=== PATIENT | male | born 1960 | race Caucasian/White ===

== ENCOUNTER 2020-01-23 07:55 | Inpatient (IN) | payer OTHER ==
[2020-01-23] MEDS ORDERED: Nozin Nasal Sanitizer NASBOTH SCH (09:00)
[2020-01-23] MEDS ORDERED: ceFAZolin 2 GM in Premix Bag 1 BAG IV ONE (09:00)
[2020-01-23] MEDS: Lactated Ringers 1,000 ML IV SCH ×2 (09:40→20:42)
[2020-01-23] MEDS ORDERED: fentaNYL 100 MCG/2 ML SDV ONE (10:03)
[2020-01-23] MEDS ORDERED: Propofol 200 MG/20 ML SDV ONE (10:03)
[2020-01-23] MEDS ORDERED: Midazolam 1 MG/ML 2 ML SDV ONE ×2 (10:03→10:27)
[2020-01-23] MEDS ORDERED: Lactated Ringers 1,000 ML ONE (11:20)
[2020-01-23] MEDS ORDERED: Magnesium Hydroxide 400 MG/5 ML Susp 30 ML Cup PO PRN (11:32)
[2020-01-23] MEDS ORDERED: Ondansetron 4 MG/2 ML SDV IVPUSH PRN (11:32)
[2020-01-23] MEDS: Acetaminophen/oxyCODONE 325-5 MG Tab PO PRN ×2 (13:35→18:17)
[2020-01-23] MEDS: Ketorolac 30 MG/ML SDV IVPUSH SCH ×2 (15:09→19:52)
[2020-01-23] MEDS: Morphine 2 MG/ML SYRINGE IV PRN ×4 (17:03→23:49)
[2020-01-23] MEDS: ceFAZolin 1 GM in Premix Bag 1 BAG IV SCH (18:27)
[2020-01-23] MEDS: Nozin Nasal Sanitizer NASBOTH SCH (20:02)
[2020-01-23] MEDS: Acetaminophen/HYDROcodone 325-5 MG Tab PO PRN (23:52)
[2020-01-24] MEDS: Morphine 2 MG/ML SYRINGE IV PRN ×3 (01:09→17:03)
[2020-01-24] MEDS: Ketorolac 30 MG/ML SDV IVPUSH SCH ×4 (01:12→20:00)
[2020-01-24] MEDS: ceFAZolin 1 GM in Premix Bag 1 BAG IV SCH (01:15)
[2020-01-24] MEDS: Diazepam 2 MG Tab PO PRN ×3 (02:00→17:37)
[2020-01-24] MEDS: Acetaminophen/HYDROcodone 325-5 MG Tab PO PRN ×4 (05:39→21:49)
[2020-01-24] MEDS: Docusate Sodium 100 MG Cap PO SCH (09:36)
[2020-01-24] MEDS: Nozin Nasal Sanitizer NASBOTH SCH ×2 (09:36→20:00)
[2020-01-24] MEDS: Pantoprazole 40 MG Tab.CR PO SCH (14:03)
[2020-01-25] MEDS: Diazepam 2 MG Tab PO PRN ×2 (02:18→09:19)
[2020-01-25] MEDS: Acetaminophen/HYDROcodone 325-5 MG Tab PO PRN ×3 (02:19→13:42)
[2020-01-25] MEDS: Ketorolac 30 MG/ML SDV IVPUSH SCH ×3 (02:20→13:43)
[2020-01-25] MEDS: Pantoprazole 40 MG Tab.CR PO SCH (07:50)
[2020-01-25] MEDS: Docusate Sodium 100 MG Cap PO SCH (08:47)
[2020-01-25] MEDS: Nozin Nasal Sanitizer NASBOTH SCH (08:47)
[2020-01-25] MEDS: Morphine 2 MG/ML SYRINGE IV PRN (10:45)
--- NOTE | 2020-01-25 13:28 | PCM.SURGPN ---
- General Info Date of Service: 01/24/20 Date of Surgery/Procedure: 01/23/20 POD#: 1 Functional Status: Reports: Tolerating Diet, Urinating - Review of Systems General: Reports: No Symptoms HEENT: Reports: No Symptoms Pulmonary: Reports: No Symptoms Cardiovascular: Reports: No Symptoms Gastrointestinal: Reports: No Symptoms Genitourinary: Reports: No Symptoms Musculoskeletal: Reports: Leg Pain Skin: Reports: No Symptoms Neurological: Reports: No Symptoms Psychiatric: Reports: No Symptoms - Patient Data Vitals - Most Recent: Last Vital Signs Temp 36.6 C 01/25/20 11:00 Pulse 86 01/25/20 11:00 Resp 16 01/25/20 11:00 BP 122/74 01/25/20 11:00 Pulse Ox 97 01/25/20 11:00 Weight - Most Recent: 90.265 kg I&O - Last 24 Hours: Intake & Output 01/24/20 01/25/20 01/25/20 22:59 06:59 14:59 Intake Total 800 2000 240 Output Total 700 400 500 Balance 100 1600 -260 Med Orders - Current: Current Medications Hydrocodone Bitart/Acetaminophen ([place] 325-5 Mg) 2 tab PO Q4H PRN PRN Reason: Pain (mild 1-3) Last Admin: 01/25/20 08:09 Dose: 2 tab Documented by: Bandage/Support Products ( Nasal Software Verification Engineer) 1 applic NASBOTH BID [facility] Stop: 01/30/20 21:01 Last Admin: 01/25/20 08:47 Dose: 1 applic Documented by: Diazepam (Valium) 2 mg PO Q8H PRN PRN Reason: Pain Last Admin: 01/25/20 09:19 Dose: 2 mg Documented by: Docusate Sodium (Colace) 100 mg PO DAILY [facility] Last Admin: 01/25/20 08:47 Dose: 100 mg Documented by: Lactated Ringer's (Ringers, Lactated) 1,000 mls @ 75 mls/hr IV ASDIRECTED [facility] Last Admin: 01/23/20 20:42 Dose: 75 mls/hr Documented by: Ketorolac Tromethamine (Toradol) 30 mg IVPUSH Q6H [facility] Stop: 01/25/20 14:01 Last Admin: 01/25/20 07:59 Dose: 30 mg Documented by: Magnesium Hydroxide (Milk Of Magnesia) 30 ml PO Q6H PRN PRN Reason: Stool Softener Morphine Sulfate (Morphine) 1 mg IV Q1H PRN PRN Reason: Breakthrough Pain Last Admin: 01/25/20 10:45 Dose: 1 mg Documented by: Ondansetron HCl (Zofran) 4 mg IVPUSH Q6H PRN PRN Reason: Nausea/Vomiting Oxycodone/Acetaminophen (Percocet 325-5 Mg) 1 - 2 tab PO Q6H PRN PRN Reason: Pain (moderate 4-6) Last Admin: 01/23/20 18:17 Dose: 2 tab Documented by: Pantoprazole Sodium (Protonix) 40 mg PO DAILY@0730 [facility] Last Admin: 01/25/20 07:50 Dose: 40 mg Documented by: Discontinued Medications Bandage/Support Products ( Nasal Software Verification Engineer) 1 applic NASBOTH BID [facility] Last Admin: 01/23/20 09:01 Dose: 1 applic Documented by: Fentanyl (Sublimaze) Confirm Administered Dose 100 mcg .ROUTE .STK-MED ONE Stop: 01/23/20 10:04 Cefazolin Sodium/Dextrose 2 gm (/ Premix) 50 mls @ 100 mls/hr IV ONETIME ONE Stop: 01/23/20 09:29 Last Admin: 01/23/20 10:07 Dose: 100 mls/hr Documented by: Lactated Ringer's (Ringers, Lactated) Confirm Administered Dose 1,000 mls @ as directed .ROUTE .STK-MED ONE Stop: 01/23/20 11:21 Cefazolin Sodium/Dextrose 1 gm (/ Premix) 50 mls @ 200 mls/hr IV Q8H [facility] Stop: 01/24/20 02:14 Last Admin: 01/24/20 01:15 Dose: 200 mls/hr Documented by: Midazolam HCl (Versed 1 Mg/Ml) Confirm Administered Dose 2 mg .ROUTE .STK-MED ONE Stop: 01/23/20 10:04 Midazolam HCl (Versed 1 Mg/Ml) Confirm Administered Dose 2 mg .ROUTE .STK-MED ONE Stop: 01/23/20 10:28 Propofol (Diprivan 20 Ml) Confirm Administered Dose 200 mg .ROUTE .STK-MED ONE Stop: 01/23/20 10:04 - Exam Wound/Incisions: Dressing Dry and Intact General: Alert, Oriented HEENT: Pupils Equal Neck: Supple Lungs: Clear to Auscultation, Normal Respiratory Effort Cardiovascular: Regular Rate, Regular Rhythm GI/Abdominal Exam: Normal Bowel Sounds, Soft, Non-Tender, No Distention Extremities: Normal Inspection Skin: Warm, Dry Neurological: No New Focal Deficit Psy/Mental Status: Alert, Normal Affect, Normal Mood Sepsis Event Note - Evaluation Sepsis Screening Result: No Definite Risk - Focused Exam Vital Signs: Vital Signs Temp Pulse Resp BP Pulse Ox 01/25/20 11:00 36.6 C 86 16 122/74 97 01/25/20 07:56 36.6 C 84 16 114/68 01/25/20 02:24 37.5 C 82 15 122/75 95 - Problem List & Annotations (1) Status post tendon repair SNOMED Code(s): 275484086, 395684458 Code(s): Z98.890 - OTHER SPECIFIED POSTPROCEDURAL STATES Status: Acute Current Visit: Yes Annotation/Comment:: Gluteus Medius tendon (2) Tear of gluteus medius tendon SNOMED Code(s): 233870325 Code(s): S76.019A - STRAIN OF MUSCLE, FASCIA AND TENDON OF UNSP HIP, INIT ENCNTR Status: Acute Current Visit: No Qualifiers: Encounter type: subsequent encounter Laterality: left Qualified Code(s): S76.012D - Strain of muscle, fascia and tendon of left hip, subsequent encounter - Problem List Review Problem List Initiated/Reviewed/Updated: Yes - My Orders Last 24 Hours: Active Orders 24 hr Category Date Time Status Admission Status [Patient Status] [ADT] Routine ADT 01/24/20 12:30 Active Pantoprazole [ProTONIX] Med 01/24/20 14:00 Active 40 mg PO DAILY@0730 Convert IV to Saline Lock [OM.PC] Routine Oth 01/24/20 12:38 Ordered Medication Orders Hydrocodone Bitart/Acetaminophen ([place] 325-5 Mg) 2 tab PO Q4H PRN PRN Reason: Pain (mild 1-3) Last Admin: 01/25/20 08:09 Dose: 2 tab Documented by: SANTIAGO Cosigned by: GINETTE Admin: 01/25/20 02:19 Dose: 2 tab Documented by: Admin: 01/24/20 21:49 Dose: 2 tab Documented by: Admin: 01/24/20 14:00 Dose: 2 tab Documented by: Admin: 01/24/20 09:36 Dose: 2 tab Documented by: Admin: 01/24/20 05:39 Dose: 2 tab Documented by: Admin: 01/23/20 23:52 Dose: 2 tab Documented by: PABLO Bandage/Support Products ( Nasal Software Verification Engineer) 1 applic NASBOTH BID [facility] Stop: 01/30/20 21:01 Last Admin: 01/25/20 08:47 Dose: 1 applic Documented by: SANTIAGO Cosigned by: GINETTE Admin: 01/24/20 20:00 Dose: 1 applic Documented by: Admin: 01/24/20 09:36 Dose: 1 applic Documented by: Admin: 01/23/20 20:02 Dose: 1 applic Documented by: PABLO Diazepam (Valium) 2 mg PO Q8H PRN PRN Reason: Pain Last Admin: 01/25/20 09:19 Dose: 2 mg Documented by: Admin: 01/25/20 02:18 Dose: 2 mg Documented by: Admin: 01/24/20 17:37 Dose: 2 mg Documented by: Admin: 01/24/20 09:36 Dose: 2 mg Documented by: Admin: 01/24/20 02:00 Dose: 2 mg Documented by: PABLO Docusate Sodium (Colace) 100 mg PO DAILY [facility] Admin: 01/25/20 08:47 Dose: 100 mg Documented by: SANTIAGO Cosigned by: [id number] Admin: 01/24/20 09:36 Dose: 100 mg Documented by: LEONA Lactated Ringer's (Ringers, Lactated) 1,000 mls @ 75 mls/hr IV ASDIRECTED [facility] Last Admin: 01/23/20 20:42 Dose: 75 mls/hr Documented by: Infusion: 01/23/20 20:42 Dose: 75 mls/hr Documented by: Admin: 01/23/20 09:40 Dose: 75 mls/hr Documented by: CORRY Ketorolac Tromethamine (Toradol) 30 mg IVPUSH Q6H [facility] Stop: 01/25/20 14:01 Last Admin: 01/25/20 07:59 Dose: 30 mg Documented by: SANTIAGO Cosigned by: GINETTE Admin: 01/25/20 02:20 Dose: 30 mg Documented by: Admin: 01/24/20 20:00 Dose: 30 mg Documented by: Admin: 01/24/20 13:59 Dose: 30 mg Documented by: Admin: 01/24/20 07:29 Dose: 30 mg Documented by: Admin: 01/24/20 01:12 Dose: 30 mg Documented by: Admin: 01/23/20 19:52 Dose: 30 mg Documented by: Admin: 01/23/20 15:09 Dose: 30 mg Documented by: LEONA Magnesium Hydroxide (Milk Of Magnesia) 30 ml PO Q6H PRN PRN Reason: Stool Softener Morphine Sulfate (Morphine) 1 mg IV Q1H PRN PRN Reason: Breakthrough Pain Last Admin: 01/25/20 10:45 Dose: 1 mg Documented by: SANTIAGO Cosigned by: GINETTE Admin: 01/24/20 17:03 Dose: 1 mg Documented by: Admin: 01/24/20 07:29 Dose: 1 mg Documented by: Admin: 01/24/20 01:09 Dose: 1 mg Documented by: Admin: 01/23/20 23:49 Dose: 1 mg Documented by: Admin: 01/23/20 22:06 Dose: 1 mg Documented by: Admin: 01/23/20 20:19 Dose: 1 mg Documented by: Admin: 01/23/20 17:03 Dose: 1 mg Documented by: LEONA Ondansetron HCl (Zofran) 4 mg IVPUSH Q6H PRN PRN Reason: Nausea/Vomiting Oxycodone/Acetaminophen (Percocet 325-5 Mg) 1 - 2 tab PO Q6H PRN PRN Reason: Pain (moderate 4-6) Last Admin: 01/23/20 18:17 Dose: 2 tab Documented by: Admin: 01/23/20 13:35 Dose: 2 tab Documented by: MAKEDA Pantoprazole Sodium (Protonix) 40 mg PO DAILY@0730 [facility] Last Admin: 01/25/20 07:50 Dose: 40 mg Documented by: SANTIAGO Cosigned by: GINETTE Admin: 01/24/20 14:03 Dose: 40 mg Documented by: LEONA - Assessment Assessment (Free Text/Narrative):: Tolerated procedure well but having difficulty with pain control, has not been out of bed/chair much, had a little vasovagal episode with trying to get out of bed secondary to pain - Plan Plan (Free Text/Narrative):: Adjusting pain meds, assist with transfers and ambulation, PT to continue, not ready for home today.
--- NOTE | 2020-02-02 08:31 | OR ---
DATE OF PROCEDURE: 01/23/2020 SURGEON: Francisco Lacy MD PREOPERATIVE DIAGNOSIS: Left gluteus medius tendon tear. POSTOPERATIVE DIAGNOSIS: Left gluteus medius tendon tear with adjacent cyst. PROCEDURES: Evacuation of cyst in left hip and repair of the gluteus medius tendon. ANESTHESIA: Spinal with sedation. INDICATIONS: Steven is a 59-year-old gentleman with a history of persistent left hip pain which has failed conservative treatment. MRI reveals irregularity of the abductor tendon with a fluid collection consistent with a tear. He now presents for repair of the abductor. Risks, benefits, and potential complications were discussed. DESCRIPTION OF PROCEDURE: After adequate anesthesia was obtained, patient was placed in the lateral decubitus position and secured with the hip positioner. The left hip and leg were prepped and draped in a sterile fashion. A longitudinal incision was made over the greater trochanter, carried down through the subcutaneous tissues and hemostasis was obtained with electrocautery. Tensor fascia and IT band were split in line with the fibers directly over the greater trochanter. Evaluation of the greater trochanter and abductor muscle revealed mild trochanteric bursitis. Abductor tendon showed no obvious tear, however, palpation revealed an area of significant thinning, and this was explored. A longitudinal incision was made in the abductor tendon in this area revealing a very thin layer of the tendon intact, and deep to this was a cystic fluid collection and a tear of the gluteus medius tendon. The cyst was evacuated. The torn end of the tendon was debrided. Rongeur was used to lightly decorticate the insertion point along the greater trochanter. A Mitek Healix anchor was then secured into the trochanter in the deep layer and sutures brought out in a mattress fashion through the tear. A 2nd suture was then placed more lateral and superficial and sutures were again delivered through the tendon in a mattress fashion. The deep layer was tied down followed by the superficial layer providing excellent approximation of the tendon. The wound was irrigated. The hip was taken through internal and external rotation. No other abnormalities were identified. Tensor fascia and IT band were closed using #2 Ethibond in interrupted fashion. Skin was closed with 2-0 Vicryl and running 3-0 Monocryl. Steri-Strips were applied. Sterile dressing was then placed. The patient tolerated the procedure very well. There were no complications. Taken from the operating room in stable condition. Francisco Lacy MD /[id number]
== END 2020-01-25 16:15 | disposition home health service (06) | DRG 502 ==
LOC: JP.SDS 07:55 → JP.MS 11:32 → JP.SDS 01-24 12:30 → JP.MS 01-24 12:30
PROVIDERS: ADMIT Specialist; ATTEND Specialist
PROC: 0LQK0ZZ Repair Left Hip Tendon, Open Approach (ICD-10-PCS; principal; 2020-01-23)
DX: S76.012A Strain of muscle, fascia and tendon of left hip, initial encounter (principal); X58.XXXA Exposure to other specified factors, initial encounter; Z88.4 Allergy status to anesthetic agent; Z87.01 Personal history of pneumonia (recurrent)
CPT/HCPCS: 36415; 80053; 85027; 97110-GP; 97116-GP; 97162-GP; 97530-GP; 97535-GP; A9270-GY; C1713; J0690; J1885; J2250; J2270; J2704; J3010; J7120

== ENCOUNTER 2020-06-30 22:10 | Emergency (ER) | payer OTHER ==
[2020-06-30] MEDS ORDERED: fentaNYL 100 MCG/2 ML SDV IVPUSH ONE (22:39)
--- NOTE | 2020-06-30 22:42 | EDM.PDOC ---
ED HPI GENERAL MEDICAL PROBLEM - General Chief Complaint: General Stated Complaint: ABDOMINAL PAIN Time Seen by Provider: 06/30/20 22:25 Source of Information: Reports: Patient, Family History Limitations: Reports: No Limitations - History of Present Illness INITIAL COMMENTS - FREE TEXT/NARRATIVE: 59-year-old male that is having diffuse intermittent cramping sensation is in his lower extremities, abdomen and hands over the past several months. He is undergoing numerous tests, tonight he is having it intense spasm recurring from 4 to 5 hours so came in to be seen. He is currently scheduled for an IV enhanced lower abdomen and pelvis CT scan Onset: Unknown/Unsure Duration: Chronic, Waxing/Waning Location: Reports: Generalized (Most of his symptoms are in his legs and lower abdomen but arms are involved as well) Quality: Reports: Sharp Improves with: Reports: Other (When he is active he has less problems) Worsens with: Reports: Rest Associated Symptoms: Reports: No Other Symptoms - Related Data Allergies Allergy/AdvReac Type Severity Reaction Status Date / Time No Known Allergies Allergy Verified 06/30/20 22:20 Home Meds: Home Meds Cholecalciferol (Vitamin D3) [Vitamin D] 5,000 unit PO DAILY 10/26/19 [History] Cyanocobalamin (Vitamin B-12) [Cyanocobalamin Injection] 1,000 mcg IJ ASDIRECTED 10/26/19 [History] Ferrous Sulfate 325 mg PO DAILY 10/26/19 [History] Calcium Carbonate [Calcium] 500 mg PO DAILY 10/27/19 [History] Multivitamin [Multivitamins] 1 tab PO DAILY 01/23/20 [History] Acetaminophen/oxyCODONE [Percocet 325-5 MG] 1 - 2 each PO Q6HR PRN #48 tab 01/25/20 [Rx] Potassium Chloride 10 meq PO DAILY 05/22/20 [History] traMADol [Ultram] 50 mg PO Q6H PRN #28 tab 05/22/20 [Rx] Past Medical History HEENT History: Reports: Impaired Vision Other HEENT History: wears glasses Respiratory History: Reports: Other (See Below) Other Respiratory History: right lung granuloma; pneumonia-septic 2019 Gastrointestinal History: Reports: Chronic Constipation, Chronic Diarrhea Musculoskeletal History: Reports: Fracture Other Musculoskeletal History: right shoulder pain Hematologic History: Reports: B12 Deficiency, Folic Acid - Infectious Disease History Infectious Disease History: Reports: Chicken Pox, Measles, Mumps, Rubella, Other (See Below) Other Infectious Disease History: frequent staph infections - Past Surgical History Head Surgeries/Procedures: Reports: None HEENT Surgical History: Reports: Adenoidectomy, Tonsillectomy Respiratory Surgical History: Reports: None GI Surgical History: Reports: Bariatric Procedure, Cholecystectomy, Colonoscopy, EGD Musculoskeletal Surgical History: Reports: Arthroscopic Knee, Other (See Below) Other Musculoskeletal Surgeries/Procedures:: knee surgery. left hip scope 01/23/20 Dermatological Surgical History: Reports: None Social & Family History - Family History Cardiac: Reports: CAD, [place] : Reports: Renal Disease/Insufficiency Endocrine/Metabolic: Reports: Diabetes, type II Dermatologic: Reports: Psoriasis Oncologic: Reports: Colon, Lung - Tobacco Use Tobacco Use Status *Q: Never Tobacco User - Caffeine Use Caffeine Use: Reports: None ED ROS GENERAL - Review of Systems Review Of Systems: See Below Constitutional: Denies: Fever, Chills HEENT: Reports: No Symptoms Respiratory: Denies: Shortness of Breath Cardiovascular: Denies: Chest Pain GI/Abdominal: Reports: Abdominal Pain. Denies: Nausea, Stool Incontinence, Vomiting : Reports: No Symptoms. Denies: Incontinence Skin: Denies: Bruising, Erythema Neurological: Reports: Paresthesia (Toes and hands become numb intermittently) Psychiatric: Reports: No Symptoms ED EXAM, GENERAL - Physical Exam Exam: See Below Exam Limited By: No Limitations General Appearance: Alert, No Apparent Distress (Initially no apparent distress when I went into the exam room, patient was lying supine and fairly comfortable.) Eye Exam: Bilateral Eye: Normal Inspection Head: Atraumatic Respiratory/Chest: No Respiratory Distress, Lungs Clear Cardiovascular: Regular Rate, Rhythm GI/Abdominal: Soft, Tender (Started palpating the abdomen and he was tender across the lower abdomen) Extremities: Other (And palpated the posterior aspect of the left lower leg in the anterior aspect of the upper right leg triggering more muscle pain and spas m) Neurological: Alert, Oriented, No Motor/Sensory Deficits Psychiatric: Anxious Skin Exam: Warm, Dry Course - Vital Signs Last Recorded V/S: Last Vital Signs Temp 97.2 F 06/30/20 22:28 Pulse 97 06/30/20 22:28 Resp 19 06/30/20 23:43 BP 102/66 06/30/20 23:43 Pulse Ox 97 04/03/21 23:43 - Orders/Labs/Meds Labs: Laboratory Tests 06/30/20 06/30/20 Range/Units 22:50 22:50 WBC 7.8 (4.5-11.0) K/uL RBC 5.05 (4.30-5.90) M/uL Hgb 15.7 H (12.0-15.0) g/dL Hct 45.7 (40.0-54.0) % MCV 91 (80-98) fL MCH 31 (27-31) pg MCHC 34 (32-36) % Plt Count 176 (150-400) K/uL Neut % (Auto) 56 (36-66) % Lymph % (Auto) 24 (24-44) % Davis % (Auto) 18 H (2-6) % Eos % (Auto) 2 (2-4) % Baso % (Auto) 1 (0-1) % ESR 6 (0-20) mm/hr Sodium 145 (140-148) mmol/L Potassium 4.0 (3.6-5.2) mmol/L Chloride 105 (100-108) mmol/L Carbon Dioxide 23 (21-32) mmol/L Anion Gap 17.2 H (5.0-14.0) mmol/L BUN 12 (7-18) mg/dL Creatinine 1.0 (0.8-1.3) mg/dL Est Cr Clr Drug Dosing 86.22 mL/min Estimated GFR (MDRD) > 60 (>60) Glucose 102 (74-106) mg/dL Calcium 9.2 (8.5-10.1) mg/dL Magnesium 2.1 (1.8-2.4) mg/dL Total Bilirubin 0.5 (0.2-1.0) mg/dL AST 27 (15-37) U/L ALT 31 (12-78) U/L Alkaline Phosphatase 107 (46-116) U/L Total Protein 6.4 (6.4-8.2) g/dL Albumin 3.8 (3.4-5.0) g/dL Globulin 2.6 (2.3-3.5) g/dL Albumin/Globulin Ratio 1.5 (1.2-2.2) Meds: Medications Discontinued Medications Generic Name Dose Route Start Last Admin Trade Name Freq PRN Reason Stop Dose Admin Diazepam 5 mg 06/30/20 22:39 06/30/20 22:56 Diazepam 10 Mg/2 Ml Syringe IVPUSH 06/30/20 22:40 5 mg ONETIME ONE Administration Fentanyl 50 mcg 06/30/20 22:39 06/30/20 22:56 Fentanyl 100 Mcg/2 Ml Sdv IVPUSH 06/30/20 22:40 50 mcg ONETIME ONE Administration Gabapentin 300 mg 06/30/20 23:47 06/30/20 23:58 Gabapentin 300 Mg Cap PO 06/30/20 23:48 300 mg ONETIME ONE Administration Hydromorphone HCl 1 mg 06/30/20 23:32 06/30/20 23:36 Hydromorphone 1 Mg/Ml Syringe IVPUSH 06/30/20 23:33 1 mg ONETIME ONE Administration - Re-Assessments/Exams Free Text/Narrative Re-Assessment/Exam: 07/01/20 05:06 He was fairly comfortable when I went in the room but his exam triggered for pain and spasms. An IV was started and the patient was given 50 mcg of fentanyl and 1 mg of IV Ativan. This only helped him partially, so 1 mg of IV Dilaudid was given. CBC CMP magnesium and sed rate were obtained and they were all normal. I think this patient needs a neurology consultation which we discussed. He was discharged with 12 doses of Percocet for extra pain control and encouraged to increase activity as tolerated. He is going to call his primary care provider on Thursday to see if he can step up his appointments and possibly arrange a neurology consult. Departure - Departure Time of Disposition: 00:20 Disposition: Home, Self-Care 01 Clinical Impression: Cramps, muscle, general - Discharge Information Instructions: Muscle Cramps and Spasms, [id number] Referrals: Grecia Romero [Primary Care Provider] - Forms: ED Department Discharge Care Plan Goals: Try gabapentin 300 mg twice daily, increase activity as tolerated and follow-up as scheduled. Use Percocet as prescribed for extra pain control if needed. A neurology consult would be beneficial. Sepsis Event Note (ED) - Evaluation Sepsis Screening Result: No Definite Risk - Focused Exam Vital Signs: Vital Signs Temp Pulse Resp BP Pulse Ox 06/30/20 23:43 19 102/66 97 04/03/21 22:28 97.2 F 97 18 106/67 97
[2020-06-30] MEDS ORDERED: HYDROmorphone 1 MG/ML Syringe IVPUSH ONE (23:32)
[2020-06-30] MEDS ORDERED: Gabapentin 300 MG Cap PO ONE (23:47)
== END 2020-07-01 00:28 | disposition home or self-care (01) ==
LOC: JP.ED 22:10
DX: R25.2 Cramp and spasm (principal)
CPT/HCPCS: 36415; 80053; 83735; 85025; 85651; 96374; 96375; 99284; A9270; J1170; J3010; J3360

== ENCOUNTER 2020-08-07 23:14 | Emergency (ER) | payer OTHER ==
[2020-08-07] MEDS ORDERED: Lidocaine 5% 700 MG Patch TRDERM ONE (23:59)
--- NOTE | 2020-08-08 00:06 | EDM.PDOC ---
ED HPI GENERAL MEDICAL PROBLEM - General Chief Complaint: General Stated Complaint: MEDICAL VIA [facility] Time Seen by Provider: 08/07/20 23:57 Source of Information: Reports: Patient, Family ( at bedside) History Limitations: Reports: No Limitations - History of Present Illness INITIAL COMMENTS - FREE TEXT/NARRATIVE: Patient presents to the ER via EMS due to acute onset of pain episode/muscle spasm of bilateral LE (states pain/spasm starts in LE/feet and goes up to hips) there seems to be no acute trigger it just happens. Episode tonight started around 1999, he took tramadol, acetaminophen, flexaril, and valium but no relief occurred so he finally called EMS (he was given 1mg Ativan IVP x 2 as well as 50mcg fentanyl IVP / Zofran)--upon arrival to the ER he was finally able to tolerate pain and muscle spasms markedly reduced almost resolved. He states he was seen here about a month ago in the ER, recommended to have MRI spine by ER doc, his PCM ordered and he was notified he has significant spinal stenosis--he is awaiting neurology consult / initial appointment which he states is currently scheduled in September. He states pain is increasing in nature and that he can't wait until September--he is very frustrated with the system. PMH/Meds--reviewed, currently out of valium, has very limited flexaril, gabapentin has not been adjusted since starting at 300mg bid, prn tramadol. he has not tried lidoderm patches Onset: Today Duration: Intermittent, Recurring Location: Reports: Lower Extremity, Left, Lower Extremity, Right, Radiates to (up to hips/groin area from feet) Quality: Reports: Ache, Same as Previous Episode, Stabbing Severity: Severe generalized Pain Score (Numeric/FACES): 8 - Related Data Allergies Allergy/AdvReac Type Severity Reaction Status Date / Time No Known Allergies Allergy Verified 08/07/20 23:26 Home Meds: Home Meds Cholecalciferol (Vitamin D3) [Vitamin D] 5,000 unit PO DAILY 10/26/19 [History] Cyanocobalamin (Vitamin B-12) [Cyanocobalamin Injection] 1,000 mcg IJ ASDIRECTED 10/26/19 [History] Ferrous Sulfate 325 mg PO DAILY 10/26/19 [History] Calcium Carbonate [Calcium] 500 mg PO DAILY 10/27/19 [History] Multivitamin [Multivitamins] 1 tab PO DAILY 01/23/20 [History] Potassium Chloride 10 meq PO DAILY 05/22/20 [History] traMADol [Ultram] 50 mg PO Q6H PRN #28 tab 05/22/20 [Rx] Metoprolol Tartrate 12.5 mg PO BID 07/17/20 [History] diazePAM [Valium] 10 mg PO BID PRN #10 tab 07/17/20 [Rx] Cyclobenzaprine [Flexeril] 10 mg PO TID PRN 08/07/20 [History] Gabapentin [Neurontin] 300 mg PO BID 08/07/20 [History] Tamsulosin [Tamsulosin 24 Hr] 0.4 mg PO DAILY 08/07/20 [History] Past Medical History HEENT History: Reports: Impaired Vision Other HEENT History: wears glasses Respiratory History: Reports: Other (See Below) Other Respiratory History: right lung granuloma; pneumonia-septic 2019 Gastrointestinal History: Reports: Chronic Constipation, Chronic Diarrhea Musculoskeletal History: Reports: Fracture Other Musculoskeletal History: right shoulder pain Hematologic History: Reports: B12 Deficiency, Folic Acid - Infectious Disease History Infectious Disease History: Reports: Chicken Pox, Measles, Mumps, Rubella, Other (See Below) Other Infectious Disease History: frequent staph infections - Past Surgical History Head Surgeries/Procedures: Reports: None HEENT Surgical History: Reports: Adenoidectomy, Tonsillectomy Respiratory Surgical History: Reports: None GI Surgical History: Reports: Bariatric Procedure, Cholecystectomy, Colonoscopy, EGD Musculoskeletal Surgical History: Reports: Arthroscopic Knee, Other (See Below) Other Musculoskeletal Surgeries/Procedures:: knee surgery. left hip scope 01/23/20 Dermatological Surgical History: Reports: None Social & Family History - Family History Cardiac: Reports: CAD, [place] : Reports: Renal Disease/Insufficiency Endocrine/Metabolic: Reports: Diabetes, type II Dermatologic: Reports: Psoriasis Oncologic: Reports: Colon, Lung - Caffeine Use Caffeine Use: Reports: None ED ROS GENERAL - Review of Systems Review Of Systems: See Below Constitutional: Reports: No Symptoms HEENT: Reports: No Symptoms Respiratory: Reports: No Symptoms Cardiovascular: Reports: No Symptoms Endocrine: Reports: No Symptoms GI/Abdominal: Reports: No Symptoms : Reports: No Symptoms Musculoskeletal: Reports: Leg Pain, Foot Pain, Muscle Pain Skin: Reports: No Symptoms Neurological: Reports: No Symptoms Psychiatric: Reports: No Symptoms Hematologic/Lymphatic: Reports: No Symptoms Immunologic: Reports: No Symptoms ED EXAM, GENERAL - Physical Exam Exam: See Below Exam Limited By: No Limitations General Appearance: Alert, WD/WN, No Apparent Distress Eye Exam: Bilateral Eye: Normal Inspection Ears: Normal External Exam, Hearing Grossly Normal Nose: Normal Inspection Throat/Mouth: Normal Inspection Head: Atraumatic, Normocephalic Neck: Normal Inspection, Supple, Full Range of Motion Respiratory/Chest: No Respiratory Distress, Lungs Clear, Normal Breath Sounds Cardiovascular: Normal Peripheral Pulses, Regular Rate, Rhythm, No Edema Peripheral Pulses: 2+: Radial (L), Radial (R), Dorsalis Pedis (L), Dorsalis Pedis (R) GI/Abdominal: Normal Bowel Sounds, Soft, Non-Tender (Male) Exam: Deferred Rectal (Males) Exam: Deferred Extremities: No Pedal Edema, Normal Capillary Refill, Other (patient self- limiting movement due to concern about causing another pain episode/muscle spasm event) Neurological: Alert, Oriented, Normal Cognition Psychiatric: Normal Affect, Normal Mood Skin Exam: Warm, Dry, Intact, Normal Color Course - Vital Signs Text/Narrative:: d/w patient that based on findings now there appears to be no acute need for transfer to neurosurgical services. his frustration was acknowledged. recommendations were made in medication adjustment/additions in which they are open to at this time. it is recommended that they contact their PCM regarding further assistance with neurology consult navigation. he states he has an appt in [facility] tomorrow with vascular surgeon and will request some assistance then. at this time they verbalize ready for d/c home. [place] [employer] COORDINATOR was reviewed prior to prescriptions being written for this patient Last Recorded V/S: Last Vital Signs Temp 99.0 F 08/07/20 23:23 Pulse 105 H 08/07/20 23:23 Resp 18 08/07/20 23:23 BP 110/68 08/07/20 23:23 Pulse Ox 98 08/07/20 23:23 - Orders/Labs/Meds Orders: Active Orders 24 hr Category Date Time Status Lidocaine 5% [Lidoderm 5%] Med 08/07/20 23:59 Once 700 mg TRDERM ONETIME ONE Departure - Departure Time of Disposition: 00:22 Disposition: Home, Self-Care 01 Condition: Good Clinical Impression: Chronic pain syndrome, Spinal stenosis - Discharge Information *PRESCRIPTION DRUG MONITORING PROGRAM REVIEWED*: Yes *COPY OF PRESCRIPTION DRUG MONITORING REPORT IN PATIENT [place]: No Instructions: Spinal Stenosis Referrals: Grecia Romero [Primary Care Provider] - Additional Instructions: Contact your PCM/Family Doctor regarding your neurology referral Sepsis Event Note (ED) - Evaluation Sepsis Screening Result: No Definite Risk - Focused Exam Vital Signs: Vital Signs Temp Pulse Resp BP Pulse Ox 08/07/20 23:23 99.0 F 105 H 18 110/68 98 - My Orders Last 24 Hours: My Active Orders 08/07/20 23:59 Lidocaine 5% [Lidoderm 5%] 700 mg TRDERM ONETIME ONE - Assessment/Plan Last 24 Hours: My Active Orders 08/07/20 23:59 Lidocaine 5% [Lidoderm 5%] 700 mg TRDERM ONETIME ONE
[2020-08-08] MEDS ORDERED: Acetaminophen/oxyCODONE 325-5 MG Tab PO PRN (00:38)
== END 2020-08-08 00:57 | disposition home or self-care (01) ==
LOC: JP.ED 23:14
DX: M48.00 Spinal stenosis, site unspecified (principal)
CPT/HCPCS: 99284; A9270; 99283

== ENCOUNTER 2023-06-28 05:21 | Emergency (ER) | payer OTHER | END 2023-06-28 05:45 | disposition left against medical advice (07) | LOC: JP.ED 05:21 | DX: Z53.21 Procedure and treatment not carried out due to patient leaving prior to being seen by health care provider (principal) ==